=== PATIENT | female | born 1950 | race Caucasian/White ===

== ENCOUNTER 2016-04-23 08:03 | Observation (INO) ==
--- NOTE | 2016-04-22 17:44 | Anesthesia Evaluation PreOp ---
Date of Encounter: 04/23/16 Time of Encounter: 09:09 - Past History Planned Operation: ORIF Left Distal Radius Cardiac History: Hyperlipidemia Pulmonary History: Smoker (20 years), Asthma RESET MERCHANDISER History: Seizures (remote history, not being medically treated) Other Medical History: Thyroid, GERD Anesthesia History: No Prior Anesthetic Complications, Past Anesthesia Alcohol Use: none Drug use: none Medications and Allergies Docusate [Colace] 100 mg PO DAILY PRN 11/03/14 [History] NIFEdipine [Nifedipine ER] 60 mg PO DAILY 11/03/14 [History] Ranitidine HCl [Zantac] 150 mg PO HS 11/03/14 [History] Albuterol Sulfate [Proair Hfa] 2 puff IH Q4H PRN 11/04/15 [History] Mometasone Furoate [Asmanex Hfa] 2 puff IH QPM 11/04/15 [History] Simvastatin [Zocor] 20 mg PO QPM 11/04/15 [History] Albuterol Sulfate [Albuterol Inhaler] 2 puff IH Q4HR PRN #1 hfa.aer.ad 02/21/16 [Rx] Hydrocortisone 1 gm TP BID #28 cream..g. 02/21/16 [Rx] Ipratropium [Atrovent Inhaler] 2 puff IH QID PRN #1 hfa.aer.ad 02/21/16 [Rx] HYDROcodone/Acet 5/325 mg [[place] 5-325 mg] 1 - 2 tab PO Q6H PRN #30 tab [Rx] Potassium Chloride [Klor-Con Sprinkle] 10 meq PO DAILY 04/13/16 [History] Allergies Cefaclor [From Ceclor] Allergy (Verified 11/03/14 12:17) Hives Penicillins [PCN] Allergy (Verified 11/03/14 12:17) Hives Sulfa (Sulfonamide Antibiotics) Allergy (Verified 11/03/14 12:17) Hives - Meds/Allergy Pre-op Review Medications Reviewed: Yes Allergies Reviewed: Yes Beta Blockers on Current Med List: No Anesthesia Results - Labs Laboratory Tests 03/28/15 03/30/15 10/28/15 22:10 04:50 15:58 WBC 11.6 H Hgb 15.4 Hct 46.6 H Plt Count 313 PT 12.3 H INR 1.15 Sodium 137 Potassium 4.2 BUN Creatinine 10/28/15 15:58 WBC Hgb Hct Plt Count PT INR Sodium Potassium BUN 15 Creatinine 0.99 - Imaging EKG: report reviewed (03/28/2015 SR, 1st degree AV block, LVH and ST change) Anesthesia Exam O2 Sat Height 1.7 m Height 1.7 m Weight 112.491 kg Weight 112.491 kg O2 Sat by Pulse Oximetry 95 O2 Sat by Pulse Oximetry 95 Vital Signs Temp Pulse Resp BP Pulse Ox 96.6 F L 73 18 137/59 95 04/23/16 08:34 04/23/16 08:34 04/23/16 08:34 04/23/16 08:34 04/23/16 08:34 Height: 5'7'' Weight: 248 lbs NPO (# of Hours): 8 Pain Scale: 7 (left wrist) Pain Scale Used: Numeric (1 - 10) - HEENT Pupil (Motor): EOMI Mallampati: II Teeth: Edentulous Denture Type: Upper: Complete, Lower: Complete Oral Opening: Greater than 3 - RESET MERCHANDISER LOC: Oriented RESET MERCHANDISER Motor: Normal RUE, Normal LUE, Normal RLE, Normal LLE, Normal Face RESET MERCHANDISER Sensory: Normal: RUE, LUE, RLE, LLE, Face - Cardiac Rhythm: Regular Murmur: None - Pulmonary Breath Sounds: bilateral Clear Respiratory Effort: Symmetrical Anesthesia Assess/Plan ASA Score: 3 Modified Man[place] Scale for Level of Consciousness: Cooperative, oriented, and tranquil Anesthetic Plan: General Monitoring Plan: Standard Monitors Recovery Plan: PACU
[2016-04-23] MEDS ORDERED: Clindamycin 900 MG/50 ML 900 MG/50 ML IV.SOLN IVPB ONE (08:51)
[2016-04-23] MEDS ORDERED: Ringers Solution, Lactated 1,000 ML IVC SCH (09:00)
[2016-04-23] MEDS: Albuterol 2.5 MG/3 ML NEBULIZER IH ONE ×2 (09:37→12:26)
[2016-04-23] MEDS ORDERED: Lidocaine -MPF 2% 2 ML VIAL ONE (09:42)
[2016-04-23] MEDS ORDERED: Dexamethasone 4 MG/ML VIAL ONE (09:42)
[2016-04-23] MEDS ORDERED: *HR* Midazolam HCl 2 MG/2 ML VIAL ONE (09:42)
[2016-04-23] MEDS ORDERED: *HR* Propofol 200 MG/20 ML VIAL IVP ONE (09:42)
[2016-04-23] MEDS ORDERED: Ondansetron 4 MG/2 ML VIAL ONE (09:42)
[2016-04-23] MEDS ORDERED: *HR* FentaNYL (PF) 100 MCG/2 ML VIAL ONE ×2 (09:42→10:50)
--- NOTE | 2016-04-23 10:02 | History & Physical Report ---
Date of Encounter: 04/23/16 Time of Encounter: 10:01 24 Hour HP Update - Instructions Instructions: If the History and Physical is less than 30 days old and was completed prior to A.M. admission and or procedure and has NOT been updated on calendar day of procedure please complete this update prior to performing procedure. - Update Patient reports changes in Medical Condition: No Changes in assessment/condition: No Changes in Medication: No Preop tests/diagnostics Reviewed: Yes Surgery Remains Indicated: Yes Consent for Planned Operative Procedure(s) Verified: Yes - Pre-Operative Checklist Preoperative Checklist Indicated: Yes Prophylactic Antibiotic Ordered: Yes Is VTE Prophylaxis Indicated?: Yes
[2016-04-23] MEDS ORDERED: *HR* Rocuronium Bromide 50 MG/5 ML VIAL ONE (10:27)
[2016-04-23] MEDS ORDERED: *HR* Succinylcholine 200 MG/10 ML VIAL IVP ONE (10:27)
[2016-04-23] MEDS ORDERED: EPHEDrine 50 MG/ML VIAL ONE (10:45)
[2016-04-23] MEDS ORDERED: *HR* Phenylephrine 10 MG/ML VIAL ONE (10:51)
[2016-04-23] MEDS ORDERED: Ondansetron 4 MG/2 ML VIAL IVP ONE (11:29)
[2016-04-23] MEDS ORDERED: *HR* Promethazine 25 MG/ML VIAL IVP PRN (11:29)
[2016-04-23] MEDS ORDERED: *HR* HYDROmorphone 2 MG/ML SYRINGE ONE (11:53)
[2016-04-23] MEDS ORDERED: Albuterol 2.5 MG/3 ML NEBULIZER ONE (12:20)
[2016-04-23] MEDS: *HR* HYDROmorphone (PF) 1 MG/ML SYRINGE IVP PRN ×2 (12:34→12:39)
[2016-04-23] MEDS ORDERED: *HR* OxyCODONE Immed Rel 5 MG TABLET PO ONE (13:35)
[2016-04-23] MEDS ORDERED: Ipratropium 1 PUFF INHALER IH PRN (14:25)
--- NOTE | 2016-04-23 14:27 | Anesthesia Evaluation Post Op ---
Date of Encounter: 04/23/16 Time of Encounter: 14:26 - Vital Signs Vital Signs: Vital Signs/O2 Sat, Most Current Temp Pulse Resp BP Pulse Ox 98 F 84 16 129/71 95 04/23/16 13:13 04/23/16 14:15 04/23/16 14:15 04/23/16 14:15 04/23/16 14:15 - Lungs Lungs: Wheezes (mild expiratory wheezes) - Airway Airway: Non-obstructed - Cardiovascular Regular Rate - Mental Status Mental Status: Alert & Oriented, Answers Appropriately - Pain Pain Scale: 3 Pain Scale used: Numeric (1 - 10) - Nausea Vomiting Nausea Vomiting: Not Present - Hydration Hydration: Tolerates oral liquids, Has not voided - Discharge PostOp Status: Transfer Patient to floor
[2016-04-23] MEDS: *HR* OxyCODONE/APAP 5/325 TABLET PO PRN ×2 (17:51→23:06)
--- NOTE | 2016-04-23 18:19 | Discharge Summary ---
Outpatient Proc Discharge Plan - Plan Additional Instructions: Do not remove splint Elevate hand. Move fingers and thumb, making sure to make a full fist Use ice for 1 to 2 hour 3 times a day for the next 2 days. No lifting with the operative hand No sports or gym activities follow-up in 1 week with Jeanne Perez PA-C Home Medications: Docusate [Colace] 100 mg PO DAILY PRN 11/03/14 [History] NIFEdipine [Nifedipine ER] 60 mg PO DAILY 11/03/14 [History] Ranitidine HCl [Zantac] 150 mg PO HS 11/03/14 [History] Albuterol Sulfate [Proair Hfa] 2 puff IH Q4H PRN 11/04/15 [History] Mometasone Furoate [Asmanex Hfa] 2 puff IH QPM 11/04/15 [History] Simvastatin [Zocor] 20 mg PO QPM 11/04/15 [History] Albuterol Sulfate [Albuterol Inhaler] 2 puff IH Q4HR PRN #1 hfa.aer.ad 02/21/16 [Rx] Hydrocortisone 1 gm TP BID #28 cream..g. 02/21/16 [Rx] Ipratropium [Atrovent Inhaler] 2 puff IH QID PRN #1 hfa.aer.ad 02/21/16 [Rx] HYDROcodone/Acet 5/325 mg [[place] 5-325 mg] 1 - 2 tab PO Q6H PRN #30 tab [Rx] Potassium Chloride [Klor-Con Sprinkle] 10 meq PO DAILY 04/13/16 [History]
--- NOTE | 2016-04-23 18:21 | Operative Note ---
Date of procedure: 04/23/16 Pre-op diagnosis: Left distal radius intra-articular, 3 distal fragments Post-op diagnosis: same Procedure: Left wrist open reduction internal fixation of distal radius Implants: [employer] Geminus Anesthesia: MYLAA Surgeon: Jackson Blanchard Estimated blood loss (cc): 3 Tourniquet Time (Minutes): 56 Specimen: 0 Condition: stable Disposition: PACU Procedure in Detail: The patient received IV antibiotics in the holding area and also underwent an axillary block by the anesthesia department. The patient was brought into the operating room and placed on the OR table in supine position with the affected upper extremity in a hand table. The patient received MAC. A tourniquet was placed on the arm close axilla and the upper extremity was then prepped and draped in usual sterile fashion. A timeout was performed. The extremity was then elevated, exsanguinated with an Herbie wrap and the tourniquet was raised to a pressure of 250 mmHg. A 6 cm longitudinal incision was made over the volar radial aspect of the wrist , directly over the FCR tendon ending at the distal wrist flexion crease. The FCR sheath was split down the midline, the tendon was retracted over medially and the base of the sheath was also split the midline. The deep fascia and the FPL muscle/tendon was also retraction medially exposing the pronator quadratus. This was then elevated off in an L-shaped manner subperiosteally, exposing the fracture site. The distal fracture fragments were mobilized as a unit, and reduced with the use of a freer elevator, and provisionally pinned in place using a 0.062 K wire driven down from the tip of the radial styloid into the proximal shaft. A lamina section repairer was also used to restore the alignment of the radial shaft. Also a void was noted below the articular surface. HydroSet was mixed on the back table and then injected into the void. The volar fragments were replaced. Next a 4 hole left sided narrow plate was applied to the volar surface and secured with a bone screw through the slotted hole. Once we had appropriate position plate, it was further secured with a locking screw in hole #4 in the metaphyseal bone. The distal fragment was held against the plate restoring volar tilt, and temporary fixation wires were placed in the radial and ulnar columns securing the distal fragment. Next a compression screw was then placed distally and the ulnar column further securing the distal fragment. The remaining holes were then filled with locking screws in standard technique, using variable angle as needed. The K wires were removed and these holes were also filled with locking screws. The remaining holes in the shaft of the plate were then filled with locking screws in standard technique. The K wire was removed. Final fluoroscopy shots were taken and saved; checking in AP, lateral, facet views, and a 45 degree supination view making sure the screws were not within the joint. Once satisfactory, the wound was irrigated with normal saline and the pronator quadratus was tacked back down in place with 3-0 Vicryl [id number] sutures. The tourniquet was deflated, once again irrigating the wound and obtaining hemostasis with the bipolar electrocautery. The skin incision was closed with 5-0 nylon mattress and simple sutures. Sterile dressings were applied and the patient placed into a sugar tong splint. Patient was taken to the recovery room in stable condition. The patient will be seen at postoperative week #1 for dressing changes and placed into a short arm cast.
[2016-04-23] MEDS: Beclomethasone 80mcg MDI IH SCH (22:55)
[2016-04-23] MEDS: Famotidine 20 MG TABLET PO SCH (23:06)
[2016-04-24] MEDS: *HR* OxyCODONE/APAP 5/325 TABLET PO PRN ×4 (04:02→22:29)
[2016-04-24] MEDS: Beclomethasone 80mcg MDI IH SCH ×2 (09:37→21:00)
[2016-04-24] MEDS: NIFEdipine XL (24 HR) 60 MG TAB.ER.24 PO SCH (09:56)
[2016-04-24] MEDS: Famotidine 20 MG TABLET PO SCH (20:56)
[2016-04-25] MEDS: *HR* OxyCODONE/APAP 5/325 TABLET PO PRN ×2 (04:02→12:04)
--- NOTE | 2016-04-25 07:52 | Orthopedics Progress Note ---
Date of Encounter: 04/25/16 Time of Encounter: 07:50 Subjective Interval history: S: Stayed yesterday because she didn't feel safe going home yesterday. Pain controlled. No new complaints. O: Left wrist in sugartong splint. Fingers freely mobile. Grossly NV intact A: Post ORIF of the left distal radius. P: Home today. She says she's ready to go. NWB LUE. Home care ordered. Follow up with Dr. Blanchard Objective Vital signs: Vital Signs Temp Pulse Resp BP Pulse Ox 04/25/16 06:44 97.7 F 73 16 129/58 95 04/25/16 00:00 97.5 F L 76 18 123/60 98 04/24/16 21:00 19 95 04/24/16 20:12 97.6 F 79 20 120/62 98 04/24/16 14:28 98.9 F 93 16 134/68 95 04/24/16 10:14 98.5 F 86 18 129/73 96 04/24/16 09:38 20 98 Intake and Output 04/24/16 04/24/16 04/25/16 15:59 23:59 07:59 Intake Total 750 / 750 120 / 120 300 / 300 Output Total 250 / 250 300 / 300 200 / 200 Balance 500 / 500 -180 / -180 100 / 100 Intake: Oral 750 / 750 120 / 120 300 / 300 Output: Urine 250 / 250 300 / 300 200 / 200 Other: Meal Lunch Percent of Meal Consumed 10% # Voids 1 1 1 - VTE Documentation of Mechanical Device: Venous foot pump, device Consult Discharge Plan - Plan Additional Instructions: Do not remove splint Elevate hand. Move fingers and thumb, making sure to make a full fist Use ice for 1 to 2 hour 3 times a day for the next 2 days. No lifting with the operative hand No sports or gym activities follow-up in 1 week with Jeanne Perez PA-C Referrals: Melida Sunshine, [employer] [Primary Care Provider] -
[2016-04-25] MEDS: NIFEdipine XL (24 HR) 60 MG TAB.ER.24 PO SCH (08:05)
[2016-04-25] MEDS: Beclomethasone 80mcg MDI IH SCH (09:56)
[2016-04-25 10:51] VITALS: BP 121/63
[2016-04-25] MEDS ORDERED: FLU VACC QS2016-17 36MOS UP/PF 0.5 ML SYRINGE IM ONE (10:54)
== END 2016-04-25 13:06 | disposition home health service (06) ==
LOC: SAMDAYPAV 08:03 → 3NENU 08:03 → SAMDAYPAV 14:28 → 3NENU 14:59
PROVIDERS: ADMIT Orthopaedic Surgery Hand Surgery; ATTEND Orthopaedic Surgery Hand Surgery

== ENCOUNTER 2017-08-13 17:30 | Inpatient (IN) ==
[2017-08-13] MEDS ORDERED: 0.9 % Sodium Chloride 1,000 ML IVC ONE (20:28)
[2017-08-13] MEDS ORDERED: Ipratropium 1 PUFF INHALER IH PRN (20:30)
[2017-08-13] MEDS ORDERED: Naloxone 0.4 MG/ML INJ IVP PRN (20:30)
[2017-08-13] MEDS ORDERED: Acetaminophen 325 MG TABLET PO PRN (20:30)
[2017-08-13] MEDS ORDERED: Ondansetron 4 MG/2 ML VIAL IVP PRN (20:41)
--- NOTE | 2017-08-13 20:41 | Internal Med History&Physical ---
Date of Encounter: 08/13/17 Time of Encounter: 20:39 Internal Medicine - H&P: HPI Chief complaint: UTI Admitted From: Direct Admit Plans for Post Hospital Care: Home History of present illness: Ms. Marcial is a 67 year old female with history of COPD, hyperlipidemia, hypertension who presented from [facility] with pyelonephritis. The patient had presented there with left flank pain and abdominal pain that has been going on for couple days. Subjective fevers. Pain radiates to the left anterior abdomen. The pain started has left flank pain had progressed to become bilateral. Described as sharp. Associated nausea. Workup showed elevated white count at 23.6. Sodium was 123. Potassium 3.3. Creatinine 2.38 with previously normal creatinine. Lactic acid was 1.2. Total bilirubin 2.9, direct bilirubin 1.6, and her Glucotrol 0.3. Rest of LFTs are normal. Urinalysis was indicative for UTI. Was given IV fluids as well as IV ciprofloxacin and sent here. Denies any headache, blurry vision, vomiting, chest pain, shortness of breath, diarrhea, constipation, neurological symptoms. Past Med Surg Social Fam HX - Past Medical History Medical history: COPD, hyperlipidemia, hypertension, seizures, thyroid disease Additional medical history: head injury-concussion, left intermittent facial pain Psychiatric history: no psych history - Past Surgical History Surgical History: appendectomy, hysterectomy, orthopedic, other Additional surgical history: t&a. right open ctr 10/2015. right ear x 3. left ankle and leg - Social History Smoking Status: Current some day smoker Smokeless Tobacco Status: Yes Alcohol use: none Drug use: none Internal Medicine - H&P: Meds Docusate [Colace] 100 mg PO DAILY PRN 11/03/14 [History] NIFEdipine [Nifedipine ER] 60 mg PO DAILY 11/03/14 [History] Ranitidine HCl [Zantac] 150 mg PO HS 11/03/14 [History] Albuterol Sulfate [Proair Hfa] 2 puff IH Q4H PRN 11/04/15 [History] Mometasone Furoate [Asmanex Hfa] 2 puff IH QPM 11/04/15 [History] Simvastatin [Zocor] 20 mg PO QPM 11/04/15 [History] Albuterol Sulfate [Albuterol Inhaler] 2 puff IH Q4HR PRN #1 hfa.aer.ad 02/21/16 [Rx] Hydrocortisone 1 gm TP BID #28 cream..g. 02/21/16 [Rx] Ipratropium [Atrovent Inhaler] 2 puff IH QID PRN #1 hfa.aer.ad 02/21/16 [Rx] HYDROcodone/Acet 5/325 mg [[place] 5-325 mg] 1 - 2 tab PO Q6H PRN #30 tab [Rx] Potassium Chloride [Klor-Con Sprinkle] 10 meq PO DAILY 04/13/16 [History] 3 Allergy/AdvReac Type Severity Reaction Status Date / Time Cefaclor [From [facility]] Allergy Hives Verified 08/13/17 18:11 Penicillins [PCN] Allergy Hives Verified 08/13/17 18:11 Sulfa (Sulfonamide Allergy Hives Verified 08/13/17 18:11 Antibiotics) All Systems PM: A 10-system review of systems was performed and is negative for pertinent findings except as documented above in the HPI. Review of systems: All systems reviewed are negative except as mentioned above - Constitutional Vitals: Temp Pulse Resp BP Pulse Ox 98.6 F 80 18 94/60 97 08/13/17 19:47 08/13/17 19:47 08/13/17 19:47 08/13/17 19:47 08/13/17 19:47 Exam: GEN: NAD HEENT: AT, NC, No cyanosis, oral mucosa is moist, No JVD Lymphatics: No lymphadenoapthy Eyes: Extrocular muscles intact, anicteric CVS:RRR. S1, S2, No m/r/g RESP: CTAB ABD: Soft, NT, ND, +BS EXT: No edema, No rashes, 2+ DP NEURO: Nonfocal, CN II-XII intact, No focal motor or sensory deficits Psych: Cooperative, Not anxious or depressed - Assessment and plan (1) Pyelonephritis Current Visit: No Status: Acute Assessment and plan: We will place the patient on Cipro IV 400 mg twice a day. Was given a dose at [place]. Follow up on cultures. Check renal ultrasound for possible abscess. IV fluids. Antiemetics. (2) Acute renal failure Current Visit: No Status: Acute Assessment and plan: We will give the patient will liter bolus now. Start maintenance normal saline running at 125 mL per hour. Labs in the morning. Avoid nephrotoxins. Qualifiers: Acute renal failure type: unspecified Qualified Code(s): N17.9 - Acute kidney failure, unspecified (3) HLD (hyperlipidemia) Current Visit: Yes Status: Acute Assessment and plan: Continue home statin Qualifiers: Hyperlipidemia type: unspecified Qualified Code(s): E78.5 - Hyperlipidemia , unspecified (4) COPD (chronic obstructive pulmonary disease) Current Visit: Yes Status: Acute Assessment and plan: Not in exacerbation. Continue inhalers. Qualifiers: COPD type: unspecified COPD Qualified Code(s): J44.9 - Chronic obstructive pulmonary disease, unspecified (5) Hypertension Current Visit: No Status: Acute Assessment and plan: Hold antihypertensives given hypotension. Qualifiers: Hypertension type: essential hypertension Qualified Code(s): I10 - Essential (primary) hypertension (6) DVT prophylaxis Current Visit: Yes Status: Acute Assessment and plan: Heparin subcutaneous - Time Spent With Patient Total time spent is greater than 50% in coordination of care (as documented) at patient's floor/unit and/or counseling patient:
[2017-08-13] MEDS ORDERED: Famotidine 20 MG TABLET PO SCH (21:00)
[2017-08-13] MEDS: *HR* Heparin 5,000 UNIT/ML VIAL SQ SCH (21:06)
[2017-08-13] MEDS: 0.9 % Sodium Chloride 1,000 ML IVC SCH (23:00)
[2017-08-14] MEDS ORDERED: Ipratropium/Albuterol Neb 3 ML IH PRN (02:24)
[2017-08-14 05:07] LABS: Hematocrit 36.9 % (35.3-44.9); Hemoglobin 12.8 g/dL (11.5-15.4); Mean Corpuscular HGB Conc 34.7 g/dL (31.6-35.5); Mean Corpuscular Hemoglobin 30.3 pg (28.0-33.3); Mean Corpuscular Volume 87.4 fL (83.0-100.0); Mean Platelet Volume 12.7 fL (9.4-12.4); Platelet Count 203 K/mcL (140-400); Red Blood Count 4.22 M/mcL (3.82-4.97); Red Cell Distribution Width 13.4 % (11.5-14.5); Segmented Neutrophils % 85.8 %
[2017-08-14 05:08] LABS: Basophils # 0.1 K/mcL (0.0-0.2); Basophils % 0.2 %; Immature Granulocytes % 3.6 % (0-4); Lymphocytes # 0.8 K/mcL (0.6-4.6); Lymphocytes % 3.6 %; Monocytes # 1.5 K/mcL (0.0-1.3); Monocytes % 6.8 %; Neutrophils # 19.2 K/mcL (1.6-8.9)
[2017-08-14 05:24] LABS: Albumin 2.8 g/dL (3.5-5.7); Albumin/Globulin Ratio 0.9 (1.1-2.2); Bilirubin,Total 3.1 mg/dL (0.3-1.0); Calcium 7.9 mg/dL (8.6-10.3); Globulin 3.2 g/dL (2.4-3.5); Magnesium 1.8 mg/dL (1.6-2.6); Potassium 3.8 mEq/L (3.5-5.1)
[2017-08-14] MEDS: *HR* Heparin 5,000 UNIT/ML VIAL SQ SCH ×3 (06:00→21:45)
[2017-08-14] MEDS: Beclomethasone 80mcg MDI IH SCH ×2 (08:15→20:36)
[2017-08-14] MEDS: 0.9 % Sodium Chloride 1,000 ML IVC SCH ×2 (08:48→21:48)
[2017-08-14] MEDS: cefTRIAXone 2,000 MG in Water for inj. (sterile) 20 ML 20 ML IVP SCH (10:15)
--- NOTE | 2017-08-14 12:05 | Internal Med Progress Note ---
Date of Encounter: 08/14/17 Time of Encounter: 12:03 - Assessment and plan (1) Hypertension Current Visit: Yes Status: Chronic Assessment and plan: Resume home meds, blood pressure has improved Qualifiers: Hypertension type: essential hypertension Qualified Code(s): I10 - Essential (primary) hypertension (2) Pyelonephritis Current Visit: Yes Status: Acute Assessment and plan: Continue antiemetics Send urine culture Follow renal USS Continue Rocephin 2g daily-Day 1 Hold cipro (3) Acute renal failure Current Visit: Yes Status: Acute Assessment and plan: Continue IVF Baseline Cr/GFR 1.0/50 Presenting Cr/GFR 2/24 Monitor I/Os Avoid nephrotoxins Follow renal USS Qualifiers: Acute renal failure type: unspecified Qualified Code(s): N17.9 - Acute kidney failure, unspecified (4) HLD (hyperlipidemia) Current Visit: Yes Status: Chronic Assessment and plan: Continue home statin Qualifiers: Hyperlipidemia type: unspecified Qualified Code(s): E78.5 - Hyperlipidemia , unspecified (5) COPD (chronic obstructive pulmonary disease) Current Visit: Yes Status: Chronic Assessment and plan: Not in exacerbation. Continue inhalers., duo nebs prn Qualifiers: COPD type: unspecified COPD Qualified Code(s): J44.9 - Chronic obstructive pulmonary disease, unspecified (6) DVT prophylaxis Current Visit: Yes Status: Acute Assessment and plan: Heparin subcutaneous (7) Bacteremia due to Gram-negative bacteria Current Visit: Yes Status: Acute Assessment and plan: Start on Rocephin 2 g daily Hold cipro Follow final sensitivity - Time Spent With Patient Total time spent is greater than 50% in coordination of care (as documented) at patient's floor/unit and/or counseling patient: - Constitutional Vitals: Temp Pulse Resp BP Pulse Ox 97.8 F 83 17 165/71 98 08/14/17 11:49 08/14/17 11:49 08/14/17 11:49 08/14/17 11:49 08/14/17 11:49 Internal Medicine: Result - Labs CBC & Chem 7: 08/14/17 04:27 08/14/17 04:27 Labs: Short CBC 08/14/17 Range/Units 04:27 WBC 22.4 H (4.3-11.1) K/mcL Hgb 12.8 (11.5-15.4) g/dL Hct 36.9 (35.3-44.9) % Plt Count 203 (140-400) K/mcL Neutrophils # 19.2 H (1.6-8.9) K/mcL BMP 08/14/17 04:27 Sodium 130 L Potassium 3.8 Chloride 102 Carbon Dioxide 21 L BUN 62 H Creatinine 2.07 H Glucose 100 Calcium 7.9 L Liver Function 08/14/17 Range/Units 04:27 Total Bilirubin 3.1 H (0.3-1.0) mg/dL AST 27 (13-39) Units/L ALT 16 (7-52) Units/L Alkaline Phosphatase 98 (34-104) Units/L Albumin 2.8 L (3.5-5.7) g/dL Consult Discharge Plan - Plan Referrals: NONE,PCP [Primary Care Provider] -
[2017-08-15] MEDS: 0.9 % Sodium Chloride 1,000 ML IVC SCH ×2 (03:52→12:05)
[2017-08-15] MEDS: *HR* Heparin 5,000 UNIT/ML VIAL SQ SCH ×3 (05:48→22:40)
[2017-08-15 06:09] LABS: Basophils # 0.2 K/mcL (0.0-0.2); Basophils % 0.7 %; Eosinophils # 0.1 K/mcL (0.0-0.6); Eosinophils % 0.2 %; Hematocrit 38.4 % (35.3-44.9); Hemoglobin 12.4 g/dL (11.5-15.4); Immature Granulocytes % 6.2 % (0-4); Lymphocytes % 6.4 %; Mean Corpuscular HGB Conc 32.3 g/dL (31.6-35.5); Mean Corpuscular Hemoglobin 28.8 pg (28.0-33.3); Mean Corpuscular Volume 89.3 fL (83.0-100.0); Mean Platelet Volume 11.9 fL (9.4-12.4); Monocytes # 1.7 K/mcL (0.0-1.3); Monocytes % 7.1 %; Platelet Count 223 K/mcL (140-400); Red Cell Distribution Width 14.3 % (11.5-14.5); Segmented Neutrophils % 79.4 %
[2017-08-15 06:15] LABS: Lymphocytes # 1.6 K/mcL (0.6-4.6); Neutrophils # 19.2 K/mcL (1.6-8.9)
[2017-08-15 06:25] LABS: Calcium 7.9 mg/dL (8.6-10.3); Potassium 4.1 mEq/L (3.5-5.1)
[2017-08-15 06:35] LABS: Platelet Estimate Normal (Normal); Reactive Lymphocytes Present (Not Present); Toxic Granulation Present (Not Present)
[2017-08-15] MEDS: cefTRIAXone 2,000 MG in Water for inj. (sterile) 20 ML 20 ML IVP SCH (09:10)
[2017-08-15] MEDS: Famotidine 20 MG TABLET PO SCH (09:11)
[2017-08-15] MEDS: Beclomethasone 80mcg MDI IH SCH ×2 (10:43→20:04)
--- NOTE | 2017-08-15 12:54 | Internal Med Progress Note ---
Date of Encounter: 08/15/17 Time of Encounter: 12:54 - Assessment and plan (1) Hypertension Current Visit: Yes Status: Chronic Assessment and plan: Continue home meds Qualifiers: Hypertension type: essential hypertension Qualified Code(s): I10 - Essential (primary) hypertension (2) Pyelonephritis Current Visit: Yes Status: Acute Assessment and plan: Continue antiemetics Urine from 08/13 with E.coli Urine from 08/14 with no growth Follow renal USS Continue Rocephin 2g daily-Day 2 Continue cipro (3) Acute renal failure Current Visit: Yes Status: Acute Assessment and plan: Improved DisContinue IVF Baseline Cr/GFR 1.0/50 Presenting Cr/GFR 2 Cr/GFR today 1.37/38 Monitor I/Os Avoid nephrotoxins Follow renal USS Qualifiers: Acute renal failure type: unspecified Qualified Code(s): N17.9 - Acute kidney failure, unspecified (4) HLD (hyperlipidemia) Current Visit: Yes Status: Chronic Assessment and plan: Continue home statin Qualifiers: Hyperlipidemia type: unspecified Qualified Code(s): E78.5 - Hyperlipidemia , unspecified (5) COPD (chronic obstructive pulmonary disease) Current Visit: Yes Status: Acute Assessment and plan: IN exacerbation Start scheduled duonebs Add prednisone Continue cipro and rocephin for UTI Qualifiers: COPD type: COPD with acute exacerbation Qualified Code(s): J44.1 - Chronic obstructive pulmonary disease with (acute) exacerbation (6) DVT prophylaxis Current Visit: Yes Status: Acute Assessment and plan: Heparin subcutaneous (7) Bacteremia due to Gram-negative bacteria Current Visit: Yes Status: Acute Assessment and plan: COntinue Rocephin Continue Cipro Repeat blood culture 08/16 a.m with a.m labs Follow final sensitivity - Time Spent With Patient Total time spent is greater than 50% in coordination of care (as documented) at patient's floor/unit and/or counseling patient: - Subjective Interval history: Seen and examined at the bedside She is wheezind and dyspneic, unable to fully complete sentences urine culture from [place]- E.coli, sensitivity pending Blood culture from outside GNR Repeat blood culture scheduled for 08/16 Renal USS is pending We will treat for COPD - Constitutional Vitals: Temp Pulse Resp BP Pulse Ox 98.6 F 86 16 123/75 93 08/15/17 10:46 08/15/17 10:46 08/15/17 10:46 08/15/17 10:46 08/15/17 10:46 General appearance: Present: mild distress, A&O X 3, morbidly obese, pleasant - Head Head exam: Present: atraumatic, normocephalic - Eye Eye exam: Present: PERRL, conjuntiva pink, sclera anicteric Pupils: Present: PERRL - Neck Neck exam general surgery: Present: supple, trachea midline. Absent: lymphadenopathy - Respiratory Respiratory exam: Present: wheezes - Cardiovascular Cardiovascular exam: Present: RRR, +S1, +S2. Absent: diastolic murmur, gallop, rubs, systolic murmur - GI/Abdominal GI/Abdominal exam: Present: normal bowel sounds, soft, no peritoneal signs. Absent: distended, tenderness - Extremities Exam Extremities exam: Present: warm, radial pulses palpable and symmetrical. Absent : calf tenderness, cyanotic, pedal edema - Back Exam Back exam: Absent: CVA tenderness (L), CVA tenderness (R) - Neurological Exam Neurological exam: Present: alert, CN II-XII intact, oriented X3, no focal deficits. Absent: pronater drift, facial droop, speech deficit - Skin Skin exam: Present: dry, intact Internal Medicine: Result - Labs CBC & Chem 7: 08/15/17 05:41 08/15/17 05:41 Labs: Short CBC 08/15/17 Range/Units 05:41 WBC 24.2 H (4.3-11.1) K/mcL Hgb 12.4 (11.5-15.4) g/dL Hct 38.4 (35.3-44.9) % Plt Count 223 (140-400) K/mcL Neutrophils # 19.2 H (1.6-8.9) K/mcL BMP 08/15/17 05:41 Sodium 134 L Potassium 4.1 Chloride 109 H Carbon Dioxide 15 L BUN 51 H Creatinine 1.37 H Glucose 92 Calcium 7.9 L Consult Discharge Plan - Plan Referrals: NONE,PCP [Non-Partnered Physician] -
[2017-08-15] MEDS ORDERED: DICLOFENAC SODIUM APPL TP PRN (14:58)
[2017-08-15] MEDS: Ipratropium/Albuterol Neb 3 ML IH SCH ×3 (15:25→23:15)
[2017-08-15] MEDS: predniSONE 20 MG TABLET PO SCH (15:34)
[2017-08-15] MEDS ORDERED: NON-FORMULARY MEDICATION 1 EACH EACH (Ranitidine Hcl [Heartburn Relief] 150 MG) PO SCH (21:00)
[2017-08-15] MEDS: Gabapentin 300 MG CAPSULE PO SCH (21:04)
[2017-08-16] MEDS: Ipratropium/Albuterol Neb 3 ML IH SCH ×6 (04:13→23:23)
[2017-08-16] MEDS: *HR* Heparin 5,000 UNIT/ML VIAL SQ SCH ×3 (06:00→22:52)
[2017-08-16] MEDS: Beclomethasone 80mcg MDI IH SCH ×2 (07:25→19:43)
[2017-08-16 07:27] LABS: Hematocrit 33.9 % (35.3-44.9); Hemoglobin 11.4 g/dL (11.5-15.4); Mean Corpuscular HGB Conc 33.6 g/dL (31.6-35.5); Mean Corpuscular Hemoglobin 29.8 pg (28.0-33.3); Mean Corpuscular Volume 88.7 fL (83.0-100.0); Mean Platelet Volume 11.2 fL (9.4-12.4); Platelet Count 295 K/mcL (140-400); Red Blood Count 3.82 M/mcL (3.82-4.97); Red Cell Distribution Width 14.5 % (11.5-14.5)
[2017-08-16 07:46] LABS: Calcium 8.1 mg/dL (8.6-10.3); Potassium 4.3 mEq/L (3.5-5.1)
[2017-08-16] MEDS: Loratadine 10 MG TABLET PO SCH (09:21)
[2017-08-16] MEDS: Gabapentin 300 MG CAPSULE PO SCH ×3 (09:21→22:53)
[2017-08-16] MEDS: predniSONE 20 MG TABLET PO SCH (09:21)
[2017-08-16] MEDS: cefTRIAXone 2,000 MG in Water for inj. (sterile) 20 ML 20 ML IVP SCH (09:21)
[2017-08-16] MEDS: Famotidine 20 MG TABLET PO SCH (09:21)
--- NOTE | 2017-08-16 13:09 | Internal Med Progress Note ---
Date of Encounter: 08/16/17 Time of Encounter: 13:00 - Assessment and plan (1) Pyelonephritis Current Visit: Yes Status: Acute Assessment and plan: Continue antiemetics Urine from 08/13 with E.coli Urine from 08/14 with no growth Follow renal USS Continue cipro (2) Hypertension Current Visit: Yes Status: Chronic Assessment and plan: Continue home meds Qualifiers: Hypertension type: essential hypertension Qualified Code(s): I10 - Essential (primary) hypertension (3) Acute renal failure Current Visit: Yes Status: Acute Assessment and plan: Improved DisContinue IVF Baseline Cr/GFR 1.0/50 Presenting Cr/GFR 224 Cr/GFR today 1.37/38 Monitor I/Os Avoid nephrotoxins Follow renal USS Qualifiers: Acute renal failure type: unspecified Qualified Code(s): N17.9 - Acute kidney failure, unspecified (4) HLD (hyperlipidemia) Current Visit: Yes Status: Chronic Assessment and plan: Continue home statin Qualifiers: Hyperlipidemia type: unspecified Qualified Code(s): E78.5 - Hyperlipidemia , unspecified (5) COPD (chronic obstructive pulmonary disease) Current Visit: Yes Status: Acute Assessment and plan: IN exacerbation Start scheduled duonebs Add prednisone Continue cipro and rocephin for UTI Qualifiers: COPD type: COPD with acute exacerbation Qualified Code(s): J44.1 - Chronic obstructive pulmonary disease with (acute) exacerbation (6) DVT prophylaxis Current Visit: Yes Status: Acute Assessment and plan: Heparin subcutaneous (7) Bacteremia due to Gram-negative bacteria Current Visit: Yes Status: Acute Assessment and plan: Continue Cipro Repeat blood culture 6/5 a.m with a.m labs Follow final sensitivity - Time Spent With Patient Total time spent is greater than 50% in coordination of care (as documented) at patient's floor/unit and/or counseling patient: - Subjective Interval history: No acute events overnight - Constitutional Vitals: Temp Pulse Resp BP Pulse Ox 97.8 F 74 24 149/77 98 08/16/17 11:17 08/16/17 11:17 08/16/17 11:17 08/16/17 11:12 08/16/17 11:17 General appearance: Present: mild distress, A&O X 3, morbidly obese, pleasant - Head Head exam: Present: atraumatic, normocephalic - Eye Eye exam: Present: PERRL, conjuntiva pink, sclera anicteric Pupils: Present: PERRL - Neck Neck exam general surgery: Present: supple, trachea midline. Absent: lymphadenopathy - Respiratory Respiratory exam: Present: CTAB. Absent: accessory muscle use, rales, rhonchi, wheezes - Cardiovascular Cardiovascular exam: Present: RRR, +S1, +S2. Absent: diastolic murmur, gallop, rubs, systolic murmur - GI/Abdominal GI/Abdominal exam: Present: normal bowel sounds, soft, no peritoneal signs. Absent: distended, tenderness - Extremities Exam Extremities exam: Present: warm, radial pulses palpable and symmetrical. Absent : calf tenderness, cyanotic, pedal edema - Neurological Exam Neurological exam: Present: CN II-XII intact, oriented X3, no focal deficits. Absent: pronater drift, facial droop, speech deficit - Skin Skin exam: Present: dry, intact Internal Medicine: Result - Labs CBC & Chem 7: 08/16/17 06:49 08/16/17 06:49 Labs: Short CBC 08/16/17 Range/Units 06:49 WBC 18.7 H (4.3-11.1) K/mcL Hgb 11.4 L (11.5-15.4) g/dL Hct 33.9 L (35.3-44.9) % Plt Count 295 (140-400) K/mcL BMP 08/16/17 06:49 Sodium 135 L Potassium 4.3 Chloride 109 H Carbon Dioxide 18 L BUN 49 H Creatinine 1.31 H Glucose 174 H Calcium 8.1 L - VTE Documentation of Mechanical Device: Graduated compression elastic hosiery Consult Discharge Plan - Plan Referrals: NONE,PCP [Non-Partnered Physician] -
[2017-08-16 13:23] LABS: Lymphocytes # 0.6 K/mcL (0.6-4.6); Monocytes # 0.2 K/mcL (0.0-1.3); Neutrophils # 17.2 K/mcL (1.6-8.9)
[2017-08-16 13:24] LABS: Platelet Estimate Normal (Normal); Reactive Lymphocytes Present (Not Present)
[2017-08-16 13:25] LABS: Toxic Granulation Present (Not Present)
[2017-08-17] MEDS: Ipratropium/Albuterol Neb 3 ML IH SCH ×6 (03:34→23:02)
[2017-08-17] MEDS: *HR* Heparin 5,000 UNIT/ML VIAL SQ SCH ×3 (05:22→21:12)
[2017-08-17 06:54] LABS: Hematocrit 32.7 % (35.3-44.9); Hemoglobin 10.9 g/dL (11.5-15.4); Mean Corpuscular HGB Conc 33.3 g/dL (31.6-35.5); Mean Corpuscular Hemoglobin 29.9 pg (28.0-33.3); Mean Corpuscular Volume 89.8 fL (83.0-100.0); Mean Platelet Volume 11.1 fL (9.4-12.4); Platelet Count 321 K/mcL (140-400); Red Blood Count 3.64 M/mcL (3.82-4.97); Red Cell Distribution Width 14.6 % (11.5-14.5)
[2017-08-17 07:10] LABS: Calcium 8.1 mg/dL (8.6-10.3); Potassium 4.2 mEq/L (3.5-5.1)
[2017-08-17 07:17] LABS: Lymphocytes # 3.2 K/mcL (0.6-4.6); Monocytes # 0.3 K/mcL (0.0-1.3); Neutrophils # 12.6 K/mcL (1.6-8.9); Platelet Estimate Normal (Normal); Reactive Lymphocytes Present (Not Present)
[2017-08-17] MEDS: Beclomethasone 80mcg MDI IH SCH ×2 (07:47→19:52)
[2017-08-17] MEDS: Famotidine 20 MG TABLET PO SCH (09:16)
[2017-08-17] MEDS: Loratadine 10 MG TABLET PO SCH (09:16)
[2017-08-17] MEDS: predniSONE 20 MG TABLET PO SCH (09:16)
[2017-08-17] MEDS: Gabapentin 300 MG CAPSULE PO SCH ×3 (09:16→21:12)
--- NOTE | 2017-08-17 11:46 | Internal Med Progress Note ---
Date of Encounter: 08/17/17 Time of Encounter: 11:40 - Assessment and plan (1) Pyelonephritis Current Visit: Yes Status: Acute Assessment and plan: Continue antiemetics Urine from 08/13 with E.coli Urine from 08/14 with no growth Renal ultrasound showed no hydronephrosis or abscess Continue cipro to complete total of 7 day course. (2) Bacteremia due to Gram-negative bacteria Current Visit: Yes Status: Acute Assessment and plan: Continue Cipro. Repeat blood cultures negative (3) Hypertension Current Visit: Yes Status: Chronic Assessment and plan: Continue home meds Qualifiers: Hypertension type: essential hypertension Qualified Code(s): I10 - Essential (primary) hypertension (4) Acute renal failure Current Visit: Yes Status: Acute Assessment and plan: Improved DisContinue IVF Baseline Cr/GFR 1.0/50 Presenting Cr/GFR 2/24 Cr/GFR today 1.37/38 Monitor I/Os Avoid nephrotoxins Follow renal USS Qualifiers: Acute renal failure type: unspecified Qualified Code(s): N17.9 - Acute kidney failure, unspecified (5) HLD (hyperlipidemia) Current Visit: Yes Status: Chronic Assessment and plan: Continue home statin Qualifiers: Hyperlipidemia type: unspecified Qualified Code(s): E78.5 - Hyperlipidemia , unspecified (6) COPD (chronic obstructive pulmonary disease) Current Visit: Yes Status: Acute Assessment and plan: IN exacerbation Start scheduled duonebs Add prednisone Continue cipro and rocephin for UTI Qualifiers: COPD type: COPD with acute exacerbation Qualified Code(s): J44.1 - Chronic obstructive pulmonary disease with (acute) exacerbation (7) DVT prophylaxis Current Visit: Yes Status: Acute Assessment and plan: Heparin subcutaneous - Time Spent With Patient Total time spent is greater than 50% in coordination of care (as documented) at patient's floor/unit and/or counseling patient: - Subjective Interval history: No acute events overnight - Constitutional Vitals: Temp Pulse Resp BP Pulse Ox 97.4 F L 79 18 102/55 99 08/17/17 07:49 08/17/17 07:49 08/17/17 10:59 08/17/17 07:49 08/17/17 10:59 General appearance: Present: mild distress, A&O X 3, morbidly obese, pleasant - Head Head exam: Present: atraumatic, normocephalic - Eye Eye exam: Present: PERRL, conjuntiva pink, sclera anicteric Pupils: Present: PERRL - Neck Neck exam general surgery: Present: supple, trachea midline. Absent: lymphadenopathy - Respiratory Respiratory exam: Present: CTAB. Absent: accessory muscle use, rales, rhonchi, wheezes - Cardiovascular Cardiovascular exam: Present: RRR, +S1, +S2. Absent: diastolic murmur, gallop, rubs, systolic murmur - GI/Abdominal GI/Abdominal exam: Present: normal bowel sounds, soft, no peritoneal signs. Absent: distended, tenderness - Extremities Exam Extremities exam: Present: warm, radial pulses palpable and symmetrical. Absent : calf tenderness, cyanotic, pedal edema - Neurological Exam Neurological exam: Present: CN II-XII intact, oriented X3, no focal deficits. Absent: pronater drift, facial droop, speech deficit - Skin Skin exam: Present: dry, intact Internal Medicine: Result - Labs CBC & Chem 7: 08/17/17 06:25 08/17/17 06:25 Labs: Short CBC 08/16/17 08/17/17 Range/Units 06:49 06:25 WBC 16.1 H (4.3-11.1) K/mcL Hgb 10.9 L (11.5-15.4) g/dL Hct 32.7 L (35.3-44.9) % Plt Count 321 (140-400) K/mcL Neutrophils # 17.2 H 12.6 H (1.6-8.9) K/mcL BMP 08/17/17 06:25 Sodium 138 Potassium 4.2 Chloride 110 H Carbon Dioxide 21 L BUN 48 H Creatinine 1.36 H Glucose 174 H Calcium 8.1 L - Impressions Impressions Retroperitoneum Ultrasound 08/15/17 14:00 IMPRESSION: Suboptimal evaluation due to patient habitus. Innumerable, bilateral renal cysts. No evidence of perinephric abscess. Nonobstructing bilateral renal calculi. No hydronephrosis. D/ / 08/16/2017 13:22:41 Tutu Rose MD / anisha Interpreting Provider: Tutu Rose MD - VTE Documentation of Mechanical Device: Graduated compression elastic hosiery Consult Discharge Plan - Plan Referrals: NONE,PCP [Non-Partnered Physician] -
[2017-08-18] MEDS: Ipratropium/Albuterol Neb 3 ML IH SCH ×3 (03:47→11:34)
[2017-08-18 05:51] LABS: Basophils # 0.1 K/mcL (0.0-0.2); Basophils % 0.8 %; Eosinophils % 0.2 %; Immature Granulocytes % 7.9 % (0-4); Lymphocytes # 2.2 K/mcL (0.6-4.6); Lymphocytes % 12.6 %; Mean Corpuscular HGB Conc 32.4 g/dL (31.6-35.5); Mean Corpuscular Hemoglobin 29.2 pg (28.0-33.3); Mean Corpuscular Volume 90.2 fL (83.0-100.0); Monocytes % 5.8 %; Neutrophils # 12.6 K/mcL (1.6-8.9); Platelet Count 346 K/mcL (140-400); Red Blood Count 3.77 M/mcL (3.82-4.97); Red Cell Distribution Width 15.2 % (11.5-14.5); Segmented Neutrophils % 72.7 %
[2017-08-18 06:01] LABS: BUN/Creatinine Ratio 41 (6-26); Blood Urea Nitrogen 41 mg/dL (8-23); Calcium 7.8 mg/dL (8.6-10.3); Carbon Dioxide 23 mEq/L (23-29); Chloride 111 mEq/L (98-107); Glucose 123 mg/dL (70-105); Osmolality,Calculated 303 (280-300); Potassium 4.3 mEq/L (3.5-5.1); Sodium 141 mEq/L (136-145); eGFR For African Americans > 60 (> 60); eGFR For Non-African Americans 55 (> 60)
[2017-08-18 06:24] LABS: Large Platelets Present (Not Present); Platelet Estimate Normal (Normal); Reactive Lymphocytes Present (Not Present); Toxic Granulation Present (Not Present)
[2017-08-18] MEDS: *HR* Heparin 5,000 UNIT/ML VIAL SQ SCH (06:39)
[2017-08-18] MEDS: Beclomethasone 80mcg MDI IH SCH (07:12)
[2017-08-18] MEDS: Gabapentin 300 MG CAPSULE PO SCH (09:04)
[2017-08-18] MEDS: predniSONE 20 MG TABLET PO SCH (09:04)
[2017-08-18] MEDS: Loratadine 10 MG TABLET PO SCH (09:04)
--- NOTE | 2017-08-18 10:27 | Internal Med Progress Note ---
Date of Encounter: 08/18/17 Time of Encounter: 10:30 - Assessment and plan (1) Pyelonephritis Status: Acute Assessment and plan: Continue antiemetics Urine from 08/13 with E.coli Urine from 08/14 with no growth Renal ultrasound showed no hydronephrosis or abscess Continue cipro to complete total of 7 day course. Plan for discharge to ECF once bed is available (2) Bacteremia due to Gram-negative bacteria Status: Acute Assessment and plan: Continue Cipro. Repeat blood cultures negative (3) Hypertension Status: Chronic Assessment and plan: Continue home meds Qualifiers: Hypertension type: essential hypertension Qualified Code(s): I10 - Essential (primary) hypertension (4) Acute renal failure Status: Acute Assessment and plan: Improved DisContinue IVF Baseline Cr/GFR 1.0/50 Presenting Cr/GFR 2 Cr/GFR today 1.37/38 Monitor I/Os Avoid nephrotoxins Follow renal USS Qualifiers: Acute renal failure type: unspecified Qualified Code(s): N17.9 - Acute kidney failure, unspecified (5) HLD (hyperlipidemia) Status: Chronic Assessment and plan: Continue home statin Qualifiers: Hyperlipidemia type: unspecified Qualified Code(s): E78.5 - Hyperlipidemia , unspecified (6) COPD (chronic obstructive pulmonary disease) Status: Acute Assessment and plan: IN exacerbation Start scheduled duonebs Add prednisone Continue cipro and rocephin for UTI Qualifiers: COPD type: COPD with acute exacerbation Qualified Code(s): J44.1 - Chronic obstructive pulmonary disease with (acute) exacerbation (7) DVT prophylaxis Status: Acute Assessment and plan: Heparin subcutaneous - Time Spent With Patient Total time spent is greater than 50% in coordination of care (as documented) at patient's floor/unit and/or counseling patient: - Subjective Interval history: No acute events overnight - Constitutional Vitals: Temp Pulse Resp BP Pulse Ox 97.8 F 70 18 105/58 98 08/18/17 07:41 08/18/17 07:41 08/18/17 07:41 08/18/17 07:41 08/18/17 09:09 General appearance: Present: mild distress, A&O X 3, morbidly obese, pleasant - Head Head exam: Present: atraumatic, normocephalic - Eye Eye exam: Present: PERRL, conjuntiva pink, sclera anicteric Pupils: Present: PERRL - Neck Neck exam general surgery: Present: supple, trachea midline. Absent: lymphadenopathy - Respiratory Respiratory exam: Present: CTAB. Absent: accessory muscle use, rales, rhonchi, wheezes - Cardiovascular Cardiovascular exam: Present: RRR, +S1, +S2. Absent: diastolic murmur, gallop, rubs, systolic murmur - GI/Abdominal GI/Abdominal exam: Present: normal bowel sounds, soft, no peritoneal signs. Absent: distended, tenderness - Extremities Exam Extremities exam: Present: warm, radial pulses palpable and symmetrical. Absent : calf tenderness, cyanotic, pedal edema - Neurological Exam Neurological exam: Present: CN II-XII intact, oriented X3, no focal deficits. Absent: pronater drift, facial droop, speech deficit - Skin Skin exam: Present: dry, intact Internal Medicine: Result - Labs CBC & Chem 7: 08/18/17 04:58 08/18/17 04:58 Labs: Short CBC 08/18/17 Range/Units 04:58 WBC 17.3 H (4.3-11.1) K/mcL Hgb 11.0 L (11.5-15.4) g/dL Hct 34.0 L (35.3-44.9) % Plt Count 346 (140-400) K/mcL Neutrophils # 12.6 H (1.6-8.9) K/mcL BMP 08/18/17 04:58 Sodium 141 Potassium 4.3 Chloride 111 H Carbon Dioxide 23 BUN 41 H Creatinine 1.00 Glucose 123 H Calcium 7.8 L - VTE Documentation of Mechanical Device: Graduated compression elastic hosiery Consult Discharge Plan - Plan Referrals: NONE,PCP [Non-Partnered Physician] - (patient is going to [facility]) Prescriptions: Beclomethasone Diprop 80mcg [QVAR 80 mcg] 2 puff IH BIDR #60 puff Ciprofloxacin [Cipro] 500 mg PO BID #4 tablet Simvastatin [Zocor] 20 mg PO QPM #30 tablet
[2017-08-18 11:46] VITALS: BP 115/47
--- NOTE | 2017-08-18 11:53 | Discharge Summary ---
Orders not resulted at time of discharge: Pending orders 08/14/17 17:05 EKG [ECG 12 lead ECG] [ECG] Stat 08/16/17 06:49 Culture,Blood [BC] AM 0400 08/19/17 04:00 Basic Metabolic Panel AM 0400 CBC [Complete Blood Count] [HEME] AM 0400 08/20/17 04:00 Basic Metabolic Panel AM 0400 CBC [Complete Blood Count] [HEME] AM 0400 08/21/17 04:00 Basic Metabolic Panel AM 0400 CBC [Complete Blood Count] [HEME] AM 0400 08/22/17 04:00 Basic Metabolic Panel AM 0400 CBC [Complete Blood Count] [HEME] AM 0400 Date of Encounter: 08/18/17 Time of Encounter: 11:40 - Discharge Diagnosis (1) Pyelonephritis Priority: Primary Status: Acute Assessment and Plan: 67 year old female with history of COPD, hyperlipidemia, hypertension who presented from [facility] with pyelonephritis. The patient had presented there with left flank pain and abdominal pain that has been going on for couple days. Subjective fevers. She had an elevated white count on admission. She was started on iv ciprofloxacin. She improved with IV ciprofloxacin with fevers, flank pain resolving and WBC trending down. Blood and urine cultures came back positive for E. coli. Repeat cultures were negative after antibiotics. She had an ultrasound of the kidneys done showing no evidence of abscess. She was discharged to rehab in a stable conditon to complete a 7 day course of ciprofloxacin (2) Bacteremia due to Gram-negative bacteria Priority: Secondary Status: Acute Assessment and Plan: Continue Cipro. Repeat blood cultures negative (3) Hypertension Priority: Secondary Status: Chronic Qualifiers: Hypertension type: essential hypertension Qualified Code(s): I10 - Essential (primary) hypertension (4) Acute renal failure Priority: Secondary Status: Acute Qualifiers: Acute renal failure type: unspecified Qualified Code(s): N17.9 - Acute kidney failure, unspecified (5) HLD (hyperlipidemia) Priority: Secondary Status: Chronic Qualifiers: Hyperlipidemia type: unspecified Qualified Code(s): E78.5 - Hyperlipidemia , unspecified (6) COPD (chronic obstructive pulmonary disease) Priority: Secondary Status: Acute Qualifiers: COPD type: COPD with acute exacerbation Qualified Code(s): J44.1 - Chronic obstructive pulmonary disease with (acute) exacerbation (7) DVT prophylaxis Priority: Secondary Status: Acute Hospital course: Ms. Marcial is a 67 year old female - Time Spent with Patient Total time spent providing and/or coordinating discharge services: - Discharge Medications Prescriptions: Beclomethasone Diprop 80mcg [QVAR 80 mcg] 2 puff IH BIDR #60 puff Ciprofloxacin [Cipro] 500 mg PO BID #4 tablet Simvastatin [Zocor] 20 mg PO QPM #30 tablet Home Medications: Albuterol Sulfate [Ventolin Hfa] 2 puff IH Q4H PRN 08/14/17 [History] Cetirizine HCl [All Day Allergy] 10 mg PO DAILY 08/14/17 [History] Diclofenac Sodium 1 appl TP TID PRN 08/14/17 [History] Docusate [Colace] 100 mg PO TID PRN 08/14/17 [History] Gabapentin [Neurontin] 300 mg PO TID PRN 08/14/17 [History] Potassium Chloride [K-Tab ER] 20 meq PO DAILY 08/14/17 [History] Ranitidine HCl [Heartburn Relief] 150 mg PO BID 08/14/17 [History] Beclomethasone Diprop 80mcg [QVAR 80 mcg] 2 puff IH BIDR #60 puff 08/18/17 [Rx] Ciprofloxacin [Cipro] 500 mg PO BID #4 tablet 08/18/17 [Rx] Simvastatin [Zocor] 20 mg PO QPM #30 tablet 08/18/17 [Rx] Allergies/Adverse Reactions: 3 Allergy/AdvReac Type Severity Reaction Status Date / Time Cefaclor [From Ceclor] Allergy Hives Verified 08/14/17 16:51 Penicillins [PCN] Allergy Hives Verified 08/14/17 16:51 Sulfa (Sulfonamide Allergy Hives Verified 08/14/17 16:51 Antibiotics) Date of admission: 08/13/17 20:29 Primary care physician: Melida Sunshine CNP Consults: 08/13/17 20:28 Consult to Occupational Therapy [CONS] Routine Comment: Evaluate, develop and implement POC Reason for Consult: therapy/placement needs Does patient have active BEDREST order?: No Is patient medically & hemodynamically stable?: Yes Consult to Physical Therapy [CONS] Routine Comment: Evaluate, develop and implement POC Reason for Consult: PT eval Does patient have active BEDREST order?: No Is patient medically & hemodynamically stable?: Yes 08/14/17 03:42 Consult to Route Relief Driver [CONS] Routine Reason for SW Consult: Discharge planning - Constitutional Vitals: Temp Pulse Resp BP Pulse Ox 97.6 F 79 18 115/47 98 08/18/17 11:45 08/18/17 11:45 08/18/17 11:45 08/18/17 11:45 08/18/17 11:45 General appearance: Present: mild distress, A&O X 3, morbidly obese, pleasant - Head Head exam: Present: atraumatic, normocephalic - Eye Eye exam: Present: PERRL, conjuntiva pink, sclera anicteric Pupils: Present: PERRL - Neck Neck exam general surgery: Present: supple, trachea midline. Absent: lymphadenopathy - Respiratory Respiratory exam: Present: CTAB. Absent: accessory muscle use, rales, rhonchi, wheezes - Cardiovascular Cardiovascular exam: Present: RRR, +S1, +S2. Absent: diastolic murmur, gallop, rubs, systolic murmur - GI/Abdominal GI/Abdominal exam: Present: normal bowel sounds, soft, no peritoneal signs. Absent: distended, tenderness - Extremities Exam Extremities exam: Present: warm, radial pulses palpable and symmetrical. Absent : calf tenderness, cyanotic, pedal edema - Neurological Exam Neurological exam: Present: CN II-XII intact, oriented X3, no focal deficits. Absent: pronater drift, facial droop, speech deficit - Skin Skin exam: Present: dry, intact - Patient Status Disposition: Transfer SNF Condition: Fair - Discharge Instructions Follow Up With: NONE,PCP [Non-Partnered Physician] - (patient is going to ECF) - VTE Documentation of Mechanical Device: Graduated compression elastic hosiery
--- NOTE | 2017-08-18 11:57 | Physician Discharge Referral ---
- Diagnosis (1) Pyelonephritis Priority: Primary Status: Acute (2) Bacteremia due to Gram-negative bacteria Status: Acute (3) Hypertension Status: Chronic (4) Acute renal failure Status: Acute (5) HLD (hyperlipidemia) Status: Chronic (6) COPD (chronic obstructive pulmonary disease) Status: Acute (7) DVT prophylaxis Status: Acute - Transfer Medications Prescriptions: Beclomethasone Diprop 80mcg [QVAR 80 mcg] 2 puff IH BIDR #60 puff Ciprofloxacin [Cipro] 500 mg PO BID #4 tablet Simvastatin [Zocor] 20 mg PO QPM #30 tablet Home Medications: Albuterol Sulfate [Ventolin Hfa] 2 puff IH Q4H PRN 08/14/17 [History] Cetirizine HCl [All Day Allergy] 10 mg PO DAILY 08/14/17 [History] Diclofenac Sodium 1 appl TP TID PRN 08/14/17 [History] Docusate [Colace] 100 mg PO TID PRN 08/14/17 [History] Gabapentin [Neurontin] 300 mg PO TID PRN 08/14/17 [History] Potassium Chloride [K-Tab ER] 20 meq PO DAILY 08/14/17 [History] Ranitidine HCl [Heartburn Relief] 150 mg PO BID 08/14/17 [History] Beclomethasone Diprop 80mcg [QVAR 80 mcg] 2 puff IH BIDR #60 puff 08/18/17 [Rx] Ciprofloxacin [Cipro] 500 mg PO BID #4 tablet 08/18/17 [Rx] Simvastatin [Zocor] 20 mg PO QPM #30 tablet 08/18/17 [Rx] Allergies/Adverse Reactions: 3 Allergy/AdvReac Type Severity Reaction Status Date / Time Cefaclor [From Ceclor] Allergy Hives Verified 08/14/17 16:51 Penicillins [PCN] Allergy Hives Verified 08/14/17 16:51 Sulfa (Sulfonamide Allergy Hives Verified 08/14/17 16:51 Antibiotics) - Respiratory Orders Smoking Cessation: Smoking cessation has been advised. For more information, call the [place] Tobacco Quit Line at 6-675-EYZP-NOW. - Mobility Orders Ambulate - Rehabiliation Orders Rehab Potential: Good - Diet Orders Cardiac CERTIFICATION: I certify that the transfer of the above named patient to an Extended Care Facility is necessary for the continuing treatment of the diagnosis listed. The above information is true and accurate reflection of patient's current condition. Confidential - Redisclosure prohibited without a patient's written consent.
== END 2017-08-18 13:20 | DRG 463 ==
LOC: 2ANU
PROVIDERS: ADMIT Family Medicine; ATTEND Family Medicine